=== PATIENT | male | born 1995 | race Caucasian/White ===

== ENCOUNTER 2019-10-27 10:13 | Emergency (ER) | payer OTHER ==
[~2019-10-27] VITALS: Ht 167.6 cm; Wt 56.7 kg
[2019-10-27] MEDS ORDERED: NORCO 5-325 TA1 EAC1 PO (11:34)
[2019-10-27 11:59] VITALS: BP 117/72
== END 2019-10-27 12:01 | disposition home or self-care (01) ==
LOC: ER 10:13
DX: S43.085A Other dislocation of left shoulder joint, initial encounter (principal); X50.1XXA Overexertion from prolonged static or awkward postures, initial encounter; Y93.89 Activity, other specified; Y92.89 Other specified places as the place of occurrence of the external cause; Y99.9 Unspecified external cause status